=== PATIENT | male | born 1990 | race African-American/Black ===

== ENCOUNTER → 2024-09-02 15:09 | Outpatient (BNVA) | payer OTHER, SELFPAY | PROVIDERS: Visit Provider Physician Assistant Medical | DX: S97.111A Crushing injury of right great toe, initial encounter (principal); W23.0XXA Caught, crushed, jammed, or pinched between moving objects, initial encounter | CPT/HCPCS: 73630; 99204 ==

== ENCOUNTER → 2024-09-08 10:15 | Outpatient (BNVA) | payer OTHER, SELFPAY | PROVIDERS: Visit Provider Physician Assistant | DX: S97.111A Crushing injury of right great toe, initial encounter (principal); W23.0XXA Caught, crushed, jammed, or pinched between moving objects, initial encounter | CPT/HCPCS: 99213 ==

== ENCOUNTER 2025-08-26 14:24 | Emergency (ER) | payer SELFPAY ==
[2025-08-26 14:38] VITALS: BP 127/72; PULSE 89; RESP 18; TEMP 36.8; O2SAT 100; BMI 24.6
--- NOTE | 2025-08-26 14:38 | ED_ITS ---
HPI - General Adult General Chief complaint: General Medical Stated complaint: STD check Time Seen by Provider: 08/26/25 14:55 Source: patient, RN notes reviewed and old records reviewed Mode of arrival: ambulatory Limitations: no limitations History of Present Illness ED Provider: Gabriel HPI narrative: 35-year-old male presents for evaluation of a chlamydia exposure. He reports that he has sexual intercourse with a new partner pain That partner called him were positive for chlamydia The patient has no evidence or concerns Denies any lower abdominal, pelvic pain, denies any urethral discharge Related Data Previous Rx's ?Medication ?Instructions ?Recorded doxycycline hyclate 100 mg tablet 100 mg PO BID #19 ta bs 08/26/25 Allergies Allergy/AdvReac Type Severity Reaction Status Date / Time No Known Allergies Allergy Verified 08/26/25 14:40 Review of Systems Gastrointestinal: Gastrointestinal: Denies abdominal pain, Denies nausea and Denies vomiting PMFSH Social History Social History Advance Directives: No Advance Directives Information Provided: No Physical Exam ED Vital Signs: Vital Signs - 24 hr 08/26/25 14:38 Temperature 98.2 F Pulse Rate 89 Respiratory Rate 18 Blood Pressure 127/72 Pulse Oximetry 100 Oxygen Delivery Method Room Air BMI result Body Mass Index 24.6 Const General: healthy appearing, comfortable, no acute distress, alert and awake Nutritional Appearance: well nourished Orientation/consciousness: patient oriented x3 HENMT Head: Yes normocephalic and Yes atraumatic Eyes Eyelids: Yes eyelids normal Conjunctivae: conjunctivae normal Sclerae: sclerae normal Corneas: corneas normal Pupils: Equal, round and reactive pupils present EOM: EOMs intact bilaterally Neck Neck: Yes full ROM Resp Effort & Inspection: normal respiratory effort and not labored Skin General skin exam: no rashes or lesions noted and elasticity normal Neuro General: patient oriented x3 Cranial nerves: Yes Equal, round and reactive pupils present and Yes Bilaterally intact EOM present Cognition (Neuro): normal cognition Extrem Other: Moving all extremities well without any obvious deformities Course Course Course Narrative: RME, this is a rapid medical exam performed by Adam Rios please refer to primary provider for complete H&P- 35-year-old male presents for evaluation of a reported chlamydia exposure. He reports a sexual partner if his told him that they were positive for chlamydia. The patient denies any signs or symptoms. Reevaluation(s) Reevaluation #1: 9:09 AM 08/28/2025 (Gail Tobar PA-C): Called and left message on voice machine, patient tested positive for chlamydia, treated appropriately. Advised to call back. >> pt called back, discussed with pt's positive result, no other questions/concerns Medications Administered Discontinued Medications Generic Name Dose Route Start Last Admin Trade Name Arley PRN Reason Stop Dose Admin Ceftriaxone Sodium 500 mg/ 0 mg 08/26/25 14:40 08/26/25 15:08 Lidocaine HCl 1 ml IM 08/26/25 14:41 1 kit ONCE ONE Administration Doxycycline Monohydrate 100 mg 08/26/25 14:40 08/26/25 15:08 Doxycycline Monohydrate 100 Mg Capsule PO 08/26/25 14:41 100 mg ONCE ONE Administration Medical Decision Making Medical Decision Making MDM Narrative: 35-year-old male presents for evaluation of chlamydia exposure. We will send a urine for gonorrhea and chlamydia and the patient is treated empirically Differential Diagnosis Differential Diagnoses: The differential diagnosis associated with the presentation includes Gonorrhea Chlamydia STI Urethritis Lab Data Labs: Lab Results 08/26/25 Range/Units 14:49 Ur N gonorrhoeae DNA (PCR) NOT DETECTED (Not Detect.) Ur Chlamydia DNA (PCR) DETECTED A (Not Detect.) Discharge Plan Discharge Clinical Impression: Exposure to chlamydia Patient Disposition: Home, Self-Care Instructions: Chlamydia (ED) Additional Instructions: You were tested for gonorrhea and chlamydia. We will call you if the results are positive. You were also treated for both. You should continue taking the doxycycline for a total of 10 days You should not have sexual intercourse until you complete your antibiotics Prescriptions: New doxycycline hyclate 100 mg tablet 100 mg PO BID Qty: 19 0RF Interventions: ED Discharge Assessment Last Done: 08/26/25 15:37 Discharge Date/Time: 08/26/25 15:38 Print Language: Portuguese
[2025-08-26] MEDS: cefTRIAXone sodium 500 MG, Lidocaine HCl 1 % MPF 1 ML IM (15:08)
[2025-08-26 15:37] VITALS: BP 127/72; PULSE 89; RESP 18; TEMP 36.8; O2SAT 100
[2025-08-26 16:24] LABS: CT PCR Urine DETECTED (Not Detect.); NG PCR Urine NOT DETECTED (Not Detect.)
== END 2025-08-26 15:38 | disposition home or self-care (01) ==
PROVIDERS: Physician Assistant; Emergency Provider Emergency Medicine Emergency Medical Services
DX: A56.8 Sexually transmitted chlamydial infection of other sites (principal)
CPT/HCPCS: 87491; 87591; 96372; 99282; 99284; J0696; J2003